=== PATIENT | male | born 1970 | race Caucasian/White ===

== ENCOUNTER 2017-01-25 19:20 | Emergency (ER) | payer OTHER ==
[~2017-01-25] VITALS: Ht 177.8 cm; Wt 83.1 kg
[2017-01-25 19:20] VITALS: BP 138/88
[2017-01-25] MEDS ORDERED: AMOXICILLIN/K CLAV 875/125MG TABLET. PO ONE (21:00)
[2017-01-25] MEDS ORDERED: AMOX1TAB61 PO (21:24)
--- NOTE | 2017-01-25 21:24 | PHYS DOC ---
Adult General Chief Complaint Chief Complaint: ANIMAL BITE HPI HPI 46-year-old male 1 day status post right of his left thumb by his own small dog. Patient was trying to pull the dog out from a place that it was stuck when it bit him. He did not seek any medical attention or do anything about it last night. And reports today that it's more tender slightly swollen and there is red streaks associated with it. He has no fevers chills sweats or shaking chills. Patient feels well. His tetanus is up-to-date. The dog is having shots and is healthy and acting normally. Review of Systems Review of Systems Constitutional: Denies fever or chills [] Eyes: Denies change in visual acuity, redness, or eye pain [] HENT: Denies nasal congestion or sore throat [] Respiratory: Denies cough or shortness of breath [] Cardiovascular: No additional information not addressed in HPI [] GI: Denies abdominal pain, nausea, vomiting, bloody stools or diarrhea [] : Denies dysuria or hematuria [] Musculoskeletal: Denies back pain or joint pain [] Integument: Denies rash or skin lesions [] Neurologic: Denies headache, focal weakness or sensory changes [] Endocrine: Denies polyuria or polydipsia [] All other systems were reviewed and found to be within normal limits, except as documented in this note. Current Medications Current Medications Current Medications Medications (Trade) Dose Ordered Sig/José Luis Start Time Stop Time Status Last Admin Dose Admin Amoxicillin/ Clavulanate Potassium (Augmentin 875/ 125mg) 1 tab 1X ONCE 01/25/17 21:00 01/25/17 21:01 DC 01/25/17 20:48 1 TAB Allergies Allergies Allergies Coded Allergies Type Severity Reaction Last Updated Verified No Known Drug Allergies 01/25/17 No Physical Exam Physical Exam Multiple puncture wounds left thumb as well as superficial excoriation. Minimal soft tissue swelling and erythema. No fluctuance or crepitus. Normal range of motion of the thumb and hand. Her main nerve exam completely benign Constitutional: Well developed, well nourished, no acute distress, non-toxic appearance. [] HENT: Normocephalic, atraumatic, bilateral external ears normal, oropharynx moist, no oral exudates, nose normal. [] Eyes: PERRLA, EOMI, conjunctiva normal, no discharge. [] Neck: Normal range of motion, no tenderness, supple, no stridor. [] Cardiovascular:Heart rate regular rhythm, no murmur [] Lungs & Thorax: Bilateral breath sounds clear to auscultation [] Abdomen: Bowel sounds normal, soft, no tenderness, no masses, no pulsatile masses. [] Skin: Warm, dry, no erythema, no rash. [] Back: No tenderness, no CVA tenderness. [] Extremities: No tenderness, no cyanosis, no clubbing, ROM intact, no edema. [] Neurologic: Alert and oriented X 3, normal motor function, normal sensory function, no focal deficits noted. [] Psychologic: Affect normal, judgement normal, mood normal. [] EKG EKG [] Radiology/Procedures Radiology/Procedures X-ray left thumb unremarkable with no foreign body[] and no fracture. Interpreted by me Course & Med Decision Making Course & Med Decision Making Pertinent Labs and Imaging studies reviewed. (See chart for details) Signs and symptoms consistent with cellulitis from infected dog bite of a healthy dog with shots up-to-date. Patient's tetanus is up-to-date. Augmentin given in ED. He feels well other than the local soreness. No evidence of systemic illness at this time. Matthew also prescribed. Patient aware to take NSAIDs and follow up with his primary care doctor tomorrow for reevaluation. He is comfortable with outpatient management and will return immediately for new severe worsening symptoms specifically worsening signs of infection with fevers. [] Dragon Disclaimer Dragon Disclaimer This electronic medical record was generated, in whole or in part, using a voice recognition dictation system. Departure Departure: Impression: Primary Impression: Dog bite of left thumb with infection Additional Impression: Cellulitis Disposition: HOME, SELF-CARE Condition: STABLE Referrals: PCP,NO (PCP) Patient Instructions: Cellulitis Additional Instructions: Your dog bite wound from yesterday has become infected. We've given you a dose of Augmentin which is an antibiotic appropriate for this. Fill this prescription in the morning and take it twice a day until completed. Follow-up with your doctor in 1-2 days for reevaluation and wound check and return immediately to the emergency department for signs of worsening infection, such as fevers and worsening swelling redness or pain, or difficulty using your hand. Scripts Amoxicillin/Potassium Clav (AUGMENTIN 875-125 TABLET) 1 Each Tablet 1 TAB PO BID, #20 TAB Prov: IVÁN MORENO MD 01/25/17 Problem Qualifiers IVÁN MORENO MD Jan 25, 2017 21:24
--- NOTE | 2017-01-26 07:44 | RAD ---
Right thumb, 3 views, 01/25/2017: History: Dog bite, possible infection No fracture or dislocation is identified. There is minimal spurring at the first CMC joint. No radiopaque foreign body is evident in the soft tissues. IMPRESSION: No acute bony abnormality is detected.
== END 2017-01-25 21:28 | disposition home or self-care (01) ==
LOC: ER 19:20
DX: S61.052A Open bite of left thumb without damage to nail, initial encounter (principal); L03.012 Cellulitis of left finger; W54.0XXA Bitten by dog, initial encounter; Y93.89 Activity, other specified; Y99.8 Other external cause status; Y92.89 Other specified places as the place of occurrence of the external cause
CPT/HCPCS: 73140; 99284

== ENCOUNTER 2017-11-21 17:44 | Emergency (ER) | payer OTHER ==
[~2017-11-21 17:44] MED LIST: AMOX1TAB61 PO
--- NOTE | 2017-11-21 17:49 | ED.ADGEN ---
Past History Past Medical History: Cancer, Diabetes, Heart Disease, Hypertension, Other Past Surgical History: Other Alcohol Use: Occasionally Drug Use: None Adult General Chief Complaint Chief Complaint ".. I think I got a spider or bug bite last week... but the spot on my Lt. elbow gotten worse... 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 Patient reports he had a bug or spider bite left elbow approximately 1 week ago. In the last couple days it's become more red and swollen. No pointing abscesses appreciated. No adenopathy. No lymphatic striations. Does have swelling over the posterior area of elbow and some of the forearm. Distal neurovascular intact. Patient is right-hand dominant. Patient is up-to-date with vaccinations. Patient normally follows at [facility]. Patient has been overseas the last week of August and the first week of September in [facility]. Was not in the country or in an area where he would receive unusual insect bites or infections. Patient describes his pain as irritating and itchy. Patient gives no history of foreign body or trauma to the elbow. Review of Systems Review of Systems Constitutional: Denies fever or chills [] Eyes: Denies change in visual acuity, redness, or eye pain [] HENT: Denies nasal congestion or sore throat [] Respiratory: Denies cough or shortness of breath [] Cardiovascular: No additional information not addressed in HPI [] GI: Denies abdominal pain, nausea, vomiting, bloody stools or diarrhea [] : Denies dysuria or hematuria [] Musculoskeletal: Denies back pain or joint pain [] Integument: Denies rash or skin lesions []set findings and left elbow cellulitis Neurologic: Denies headache, focal weakness or sensory changes [] Endocrine: Denies polyuria or polydipsia [] All other systems were reviewed and found to be within normal limits, except as documented in this note. Family History Family History Noncontributory Current Medications Current Medications Current Medications Medications (Trade) Dose Ordered Sig/José Luis Start Time Stop Time Status Last Admin Dose Admin Ceftriaxone Sodium (Rocephin Im) 1 gm 1X ONCE 11/21/17 18:00 11/21/17 18:01 DC 11/21/17 18:02 1 GM Ibuprofen (Motrin) 600 mg 1X ONCE 11/21/17 18:00 11/21/17 18:20 DC 11/21/17 18:08 600 MG Trimethoprim/ Sulfamethoxazole (Bactrim Ds) 1 tab 1X ONCE 11/21/17 18:00 11/21/17 18:01 DC 11/21/17 18:02 1 TAB Allergies Allergies Allergies Coded Allergies Type Severity Reaction Last Updated Verified No Known Drug Allergies 01/25/17 No Physical Exam Physical Exam Constitutional: Well developed, well nourished, no acute distress, non-toxic appearance. [] HENT: Normocephalic, atraumatic, bilateral external ears normal, oropharynx moist, no oral exudates, nose normal. [] Eyes: PERRLA, EOMI, conjunctiva normal, no discharge. [] Neck: Normal range of motion, no tenderness, supple, no stridor. [] Cardiovascular:Heart rate regular rhythm, no murmur [] Lungs & Thorax: Bilateral breath sounds clear to auscultation [] Abdomen: Bowel sounds normal, soft, no tenderness, no masses, no pulsatile masses. [] Skin: Warm, dry, no erythema, no rash. []Except left elbow as per history of present illness Back: No tenderness, no CVA tenderness. [] Extremities: No tenderness, no cyanosis, no clubbing, ROM intact, no edema. [] Except findings in Lt elbow. Neurologic: Alert and oriented X 3, normal motor function, normal sensory function, no focal deficits noted. [] Psychologic: Affect normal, judgement normal, mood normal. [] Current Patient Data Vital Signs Vital Signs Date Time Temp Pulse Resp B/P (MAP) Pulse Ox O2 Delivery O2 Flow Rate FiO2 11/21/17 18:33 75 18 155/103 (120) 96 Room Air 11/21/17 17:51 98.5 EKG EKG [] Radiology/Procedures Radiology/Procedures [] Course & Med Decision Making Course & Med Decision Making Pertinent Labs and Imaging studies reviewed. (See chart for details) Patient to do salt or Epsom salts soaks or compresses 4 times a day until healed. After soaks with Epsom salts or salt water to apply Polysporin to massage into the area of cellulitis 4 times a day. Patient take Bactrim DS 1 tablet twice a day for the next 10 days. Patient follow-up [facility]. Patient return if any concerns. Patient informed that if no improvement may need hospitalization for IV products. Patient informed if it develops a pointing abscess this may need to be drained. Patient return if any concerns. Patient take ibuprofen or Tylenol as needed for discomfort. [] Final Impression Final Impression 1. Cellulitis Lt. elbow [] Dragon Disclaimer Dragon Disclaimer This electronic medical record was generated, in whole or in part, using a voice recognition dictation system. BRADFORD TEJADA MD Nov 21, 2017 17:49
[2017-11-21] MEDS ORDERED: BACI28.34 TP (17:58)
[2017-11-21] MEDS ORDERED: SULF1TAB24 PO (17:58)
[2017-11-21] MEDS ORDERED: IBUPROFEN 600 MG TABLET. PO ONE (18:00)
[2017-11-21] MEDS ORDERED: IBUP400T18 PO (18:00)
[2017-11-21] MEDS ORDERED: cefTRIAXone IM 1 GM VIAL IM ONE (18:00)
[2017-11-21] MEDS ORDERED: SMZ/TMP 800/160MG TABLET. PO ONE (18:00)
[2017-11-21 18:33] VITALS: BP 155/103
== END 2017-11-21 18:23 | disposition home or self-care (01) ==
LOC: ER 17:44
DX: L03.114 Cellulitis of left upper limb (principal); E11.9 Type 2 diabetes mellitus without complications; I11.9 Hypertensive heart disease without heart failure
CPT/HCPCS: 96372; 99283; J0696

== ENCOUNTER 2018-05-26 21:50 | Emergency (ER) | payer OTHER ==
[~2018-05-26] VITALS: Ht 177.8 cm; Wt 82.1 kg
[~2018-05-26 21:50] MED LIST changes: +BACI28.34 TP; +IBUP400T18 PO; +SULF1TAB24 PO
[2018-05-26 22:02] VITALS: BP 142/98
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
[2018-05-26] MEDS ORDERED: AMOX1TAB61 PO (22:56)
[2018-05-26] MEDS ORDERED: TRAM50TA PO (22:56)
[2018-05-26] MEDS ORDERED: traMADol 50 MG TABLET PO ONE (23:00)
[2018-05-26] MEDS ORDERED: AMOXICILLIN/K CLAV 875/125MG TABLET. PO ONE (23:00)
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
== END 2018-05-26 23:07 | disposition home or self-care (01) ==
LOC: ER 21:50
DX: S60.352A Superficial foreign body of left thumb, initial encounter (principal); E11.9 Type 2 diabetes mellitus without complications; I11.9 Hypertensive heart disease without heart failure; W34.010A Accidental discharge of airgun, initial encounter; Y93.89 Activity, other specified; Y92.89 Other specified places as the place of occurrence of the external cause; Y99.8 Other external cause status
CPT/HCPCS: 73140; 99283